=== PATIENT | male | born 1960 | race Caucasian/White ===

== ENCOUNTER 2018-05-15 05:45 | Day surgery (SDC) | payer BC ==
[2018-05-15] MEDS ORDERED: LR 1,000 ML IV ONE (06:00)
[2018-05-15] MEDS ORDERED: ceFAZolin 2 GM/DEXTROSE 100 ML IV ONE (06:00)
[2018-05-15] MEDS ORDERED: LIDOCAINE 1% 2 ML INJ ID PRN (06:00)
[2018-05-15] MEDS ORDERED: MIDAZOLAM 2 MG/2 ML VIAL IVP ONE (06:57)
--- NOTE | 2018-05-15 06:57 | PDANEPAE ---
ANE History of Present Illness 57 yo for lap jonathanh ANE Past Medical History - Cardiovascular History Hx Hypertension: No Hx Arrhythmias: No Hx Chest Pain: No Hx Coronary Artery / Peripheral Vascular Disease: No Hx CHF / Valvular Disease: No Hx Palpitations: No - Pulmonary History Hx COPD: No Hx Asthma/Reactive Airway Disease: No Hx Recent Upper Respiratory Infection: No Hx Oxygen in Use at Home: No Hx Sleep Apnea: No Sleep Apnea Screening Result - Last Documented: Negative - Neurologic History Hx Cerebrovascular Accident: No Hx Seizures: No Hx Dementia: No - Endocrine History Hx Diabetes: No - Renal History Hx Renal Disorders: No - Liver History Hx Hepatic Disorders: No - Neurological & Psychiatric Hx Hx Neurological and Psychiatric Disorders: No - Cancer History Hx Cancer: No - Congenital Disorder History Hx Congenital Disorders: No - GI History Hx Gastrointestinal Disorders: No - Other Health History Other Health History: ECZEMA - Chronic Pain History Chronic Pain: Yes (NECK & SHOULDERS) - Surgical History Prior Surgeries: HERNIA REPAIR. JAW FX REPAIR. COLONOSCOPY ANE Review of Systems Review of Systems: - Exercise capacity METS (RN): 6 METS ANE Patient History - Allergies Allergies/Adverse Reactions: No Known Allergies Allergy (Unverified 04/27/18 11:59) - Home Medications Home medications: home medication list seen and reviewed Home Medications: NK [No Known Home Meds] 04/27/18 [Last Taken Unknown] - NPO status NPO Since - Liquids (Date): 05/15/18 NPO Since - Liquids (Time): 04:15 NPO Since - Solids (Date): 05/14/18 NPO Since - Solids (Time): 20:00 - Anes Hx Anes Hx: no prior problems - Smoking Hx Smoking Status: Former smoker ANE Labs/Vital Signs - Vital Signs Blood Pressure: 135/93 Heart Rate: 75 Respiratory Rate: 12 O2 Sat (%): 96 Height: 5 ft 7 in Weight: 74.843 kg ANE Physical Exam - Airway Neck exam: FROM Mallampati Score: Class 2 Mouth exam: normal dental/mouth exam - Pulmonary Pulmonary: no respiratory distress - Cardiovascular Cardiovascular: regular rate and rhythym - ASA Status ASA Status: I ANE Anesthesia Plan Anesthesia Plan: general endotracheal anesthesia
[2018-05-15] MEDS ORDERED: BUPIVACAINE 0.5% 30 ML SDV ONE (06:59)
--- NOTE | 2018-05-15 06:59 | PDHPUP ---
History & Physical Update H&P update statement: This history and physical update is based on an assessment of the patient which was completed after admission or registration (within 24 hours), but prior to the surgery/procedure. H&P update: H&P reviewed & patient examined, no change in patient's condition since H&P completed
[2018-05-15] MEDS ORDERED: fentaNYL 100 MCG/2 ML INJ ONE ×2 (07:13)
[2018-05-15] MEDS ORDERED: PROPOFOL/EMULSION 500 MG/50 ML BOTTLE IV ONE (07:13)
[2018-05-15] MEDS ORDERED: ONDANSETRON 4 MG/2 ML VIAL ONE (07:25)
[2018-05-15] MEDS ORDERED: DEXAMETHASONE 4 MG/ML VIAL ONE (07:25)
[2018-05-15] MEDS ORDERED: ROCURONIUM 50 MG/5 ML VIAL ONE ×2 (07:25→08:00)
[2018-05-15] MEDS ORDERED: NALOXONE HCL 0.4 MG/ML INJ IVP PRN (08:35)
[2018-05-15] MEDS ORDERED: oxyCODONE IR 5 MG TAB PO PRN (08:35)
[2018-05-15] MEDS ORDERED: fentaNYL 100 MCG/2 ML INJ IVP PRN (08:35)
[2018-05-15] MEDS ORDERED: ONDANSETRON 4 MG/2 ML VIAL IVP PRN (08:35)
[2018-05-15] MEDS ORDERED: SUGAMMADEX SODIUM 200 MG/2 ML VIAL IVP ONE (08:45)
--- NOTE | 2018-05-15 08:47 | POSTOPPROG ---
Post Op Note Date of Operation: 05/15/18 Surgeon: Barbara Verdugo Stack Clerk: yunior Anesthesiologist: haile Anesthesia: GET(General Endotracheal) Pre-op Diagnosis: recurrent rih and initial lih Post-op Diagnosis: same Indication: 57 yo with b ih Procedure: [facility] Findings: large rih small lih Inf/Abcess present in the surg proc area at time of surgery?: No EBL: Minimal Specimen(s): none
[2018-05-15] MEDS ORDERED: oxyCODONE IR 5 MG TAB ONE (10:10)
--- NOTE | 2018-05-15 10:13 | POSTANESTH ---
Post Anesthetic Evaluation Cardiovascular Status: Normal, Stable Respiratory Status: Normal, Stable Level of Consciousness/Mental Status: Can Participate in Eval Pain Control: Adequate, Prn Tx Ordered Nausea/Vomiting Control: Adequate, Prn Tx Ordered Complications Possibly Related to Anesthesia: None Noted
[2018-05-15 10:35] VITALS: BP 128/89
--- NOTE | 2018-05-17 18:55 | GOP ---
[f rep st] OPERATIVE REPORT DATE OF OPERATION: 05/15/2018 SURGEON: Barbara Verdugo MD DOOR FRAME BUILDER: LOLIS Doyle. ANESTHESIA: General. ANESTHESIOLOGIST: Neil Kessler MD PREOPERATIVE DIAGNOSIS: Recurrent right inguinal hernia and initial left inguinal hernia. POSTOPERATIVE DIAGNOSIS: Recurrent right inguinal hernia and initial left inguinal hernia. PROCEDURE PERFORMED: Minimally invasive bilateral inguinal hernia repair with mesh. FINDINGS: Large right inguinal hernia, small left inguinal hernia. SPECIMENS: None. ESTIMATED BLOOD LOSS: Minimum. INDICATIONS: The patient is a 57-year-old man with a recurrent right inguinal hernia. He had a previous laparoscopic repair and I did not want to try to attempt repair at the preperitoneal space. He is very active and so minimally invasive technique was indicated. I chose to do this with the da Joana. DESCRIPTION OF PROCEDURE: The patient was brought into the operating room, placed supine on the table, and general anesthesia was administered. His abdomen was prepped and draped in the usual sterile fashion. Infiltrated all sites with 0.5% Marcaine prior to making incisions. I made my initial incision above his umbilicus approximately 20 cm from the pubis. I elevated it. I inserted the Veress needle, which passed the hanging drop test. His abdomen insufflated easily to a pressure of 15 mmHg. I placed the 8 mm trocar at this site. I then placed two additional trocars under direct vision about 10 cm lateral from the initial trocar. I explored his abdomen. I could immediately see a large right inguinal hernia and a small left inguinal hernia. No injuries from trocar placement. He was placed in the Trendelenburg position. The robot was brought in and docked. Instruments brought in under direct vision. I moved to the console. Using the scissors, I created a peritoneal flap on the right side. This was a bit sticky due to his previous repair. I never saw his previous mesh. After I made the peritoneal flap, I was able to fully reduce the hernia while protecting the cord and cord structures. I cleared the space laterally. The inferior epigastric vessels were kept anterior to the plane. I placed a piece of laparoscopic self-fixating ProGrip mesh into this space covering the direct, indirect and femoral spaces. I closed the defect with 2-0 V-Loc 90. In a similar fashion, I performed a left inguinal hernia repair. The hernia was smaller on this side. Trocars removed under direct vision. The abdomen was allowed to desufflate. Skin closed with 4 -0 Monocryl. Dermabond applied. He was awakened in the operating room, extubated, transferred to PACU in stable condition. /[id number]/MODL MTDD
== END 2018-05-15 10:30 | disposition home or self-care (01) ==
LOC: FSGY 05:45
PROVIDERS: ATTEND Surgery
PROC: 0YUA4JZ Supplement Bilateral Inguinal Region with Synthetic Substitute, Percutaneous Endoscopic Approach (ICD-10-PCS; principal; 2018-05-15 07:15)
PROC: 8E0W4CZ Robotic Assisted Procedure of Trunk Region, Percutaneous Endoscopic Approach (ICD-10-PCS; principal; 2018-05-15 07:15)
DX: K40.91 Unilateral inguinal hernia, without obstruction or gangrene, recurrent (principal); K40.90 Unilateral inguinal hernia, without obstruction or gangrene, not specified as recurrent; L30.8 Other specified dermatitis; Z87.891 Personal history of nicotine dependence
CPT/HCPCS: C1781; J0690; J1100; J2250; J2405; J2704; J3010